=== PATIENT | female | born 1970 | race Caucasian/White ===

== ENCOUNTER 2016-11-03 20:13 | Emergency (ER) | payer MEDICAID ==
[~2016-11-03 20:13] MED LIST: FAMOTIDINE20 MG PO; GABAPENTIN300 M3 PO; METFORMIN1000 M1 PO; NORCO1 TA2 PO; SIMVASTATIN20 M1 PO; ZOCOR20 MG PO
[2016-11-03 22:47] VITALS: BP 138/72
== END 2016-11-03 22:47 | disposition home or self-care (01) ==
LOC: ED 20:13
DX: L50.9 Urticaria, unspecified (principal); R03.0 Elevated blood-pressure reading, without diagnosis of hypertension; E11.9 Type 2 diabetes mellitus without complications; E78.5 Hyperlipidemia, unspecified
CPT/HCPCS: J7512; Q0163

== ENCOUNTER 2017-10-18 20:27 | Emergency (ER) | payer MEDICAID ==
[~2017-10-18] VITALS: Ht 157.5 cm; Wt 90.3 kg
[2017-10-18 20:59] VITALS: Ht 157.5 cm; Wt 90.3 kg
[2017-10-18 23:02] VITALS: BP 124/77
== END 2017-10-18 23:02 | disposition home or self-care (01) ==
LOC: ED 20:27
DX: R21 Rash and other nonspecific skin eruption (principal); E11.9 Type 2 diabetes mellitus without complications; E78.00 Pure hypercholesterolemia, unspecified
CPT/HCPCS: J7512; Q0163

== ENCOUNTER 2018-05-28 17:30 | Emergency (ER) | payer MEDICAID ==
[~2018-05-28] VITALS: Ht 165.1 cm; Wt 91.6 kg
[2018-05-28 17:42] VITALS: Ht 165.1 cm; Wt 91.6 kg
[2018-05-28 20:07] VITALS: BP 143/92
== END 2018-05-28 20:07 | disposition home or self-care (01) ==
LOC: ED 17:30
DX: T78.40XA Allergy, unspecified, initial encounter (principal); E11.9 Type 2 diabetes mellitus without complications; E78.00 Pure hypercholesterolemia, unspecified; X58.XXXA Exposure to other specified factors, initial encounter